=== PATIENT | female | born 1950 | race Asian ===

== ENCOUNTER 2017-09-25 10:29 | Outpatient (CLI) | payer OTHER ==
--- NOTE | 2017-09-25 13:36 | MMO ---
BILATERAL DIGITAL SCREENING MAMMOGRAMS: Date: 09/25/17 HISTORY: 67-year-old female presents for digital screening mammogram. COMPARISON: 09/22/16, 07/15/14, 05/07/10. FINDINGS: This patient's mammogram was interpreted with the assistance of computer-aided detection. Scattered areas of fibroglandular density are noted bilaterally. Stable typically benign calcificatio ns are present. No direct or indirect evidence of malignancy. IMPRESSION: BIRADS 2: Benign Finding(s) Continue routine screening. POS: CYN
== END 2017-09-25 10:30 | disposition home or self-care (01) ==
LOC: SCSMAMMO 10:29
PROVIDERS: ATTEND Family Medicine
DX: Z12.31 Encounter for screening mammogram for malignant neoplasm of breast (principal); I48.91 Unspecified atrial fibrillation; Z79.01 Long term (current) use of anticoagulants
CPT/HCPCS: 77067; G0202

== ENCOUNTER 2018-10-15 14:08 | Outpatient (CLI) | payer MEDICARE, OTHER ==
--- NOTE | 2018-10-15 15:43 | MMO ---
BILATERAL SCREENING MAMMOGRAM: Date: 10/15/18 COMPARISON: 09/25/17, 09/22/16, and 07/15/14. HISTORY: Screening mammography. FINDINGS: This patient's mammogram was interpreted with the assistance of computer-aided detection. Scattered fibroglandular densities are present. Punctate benign-appearing microcalcification noted on the left. No dominant mass or architectural distortion. No concerning microcalcifications. IMPRESSION: BIRADS 2: Benign Finding(s) Annual screening mammography recommended. POS: CYN
== END 2018-10-15 14:09 | disposition home or self-care (01) ==
LOC: SCSMAMMO 14:08
PROVIDERS: ATTEND Family Medicine
DX: Z12.31 Encounter for screening mammogram for malignant neoplasm of breast (principal)
CPT/HCPCS: 77067